=== PATIENT | female | born 1970 | race Caucasian/White ===

== ENCOUNTER 2018-10-22 13:30 | Observation (INO) | payer BC ==
[~2018-10-22] VITALS: Ht 157.5 cm; Wt 90.7 kg
[~2018-10-22 13:30] MED LIST: NEXIUM20 MG PO
[2018-10-22] MEDS ORDERED: SODIUM CHLORIDE 0.9% 1000ML 1,000 ML IV STA ×2 (13:32→14:55)
--- OUTSIDE RECORDS SUMMARY | 2018-10-22 13:32 | XMS REPORT ---
Author Author [facility] Address Unknown Phone Unavailable Care Team Providers Care Auditor Internal Name Role Phone MIGUEL ÁNGEL GAMBOA Unavailable Unavailable Problems This patient has no known problems. Allergies, Adverse Reactions, Alerts This patient has no known allergies or adverse reactions. Medications This patient has no known medications. Results Test Description Test Time Test Comments Text Results Atomic Results Result Comments MRI SPINE LUMBAR WO [place] [address] Patient Name: JENELLE DELGADO MR #: [id number] : 1970 Age/Sex: 46/F Req #: [id number] [facility] Physician: MIGUEL ÁNGEL GAMBOA MD Ordered by: MIGUEL ÁNGEL GAMBOA MD Report #: [id number] Location: [facility] Room/Bed: [place] [address] Procedure: [id number] MRI/MRI SPINE LUMBAR WO Exam Date: 09/13/17 Exam Time: 1209 REPORT STATUS: Signed History: Low back pain. Contusion to back he bends over. Comparison studies: None Technique: Sagittal, coronal and axial T2 , sagittal T1 and IR, axial spin density oblique. Intravenous contrast: None Findings: Number of lumbar vertebral bodies:5 Alignment: Grade 1 anterolisthesis of L5 over S1. Bilateral L5 pars defect.No scoliosis. Soft tissues: No T2 hyperintense inflammatory changes. Paraspinal muscles: No signal abnormalities. No atrophy. Lower thoracic cord:Normal in signal and morphology. The tip of the conus is at L1. Cauda equina: No masses. No arachnoiditis. Vertebrae: Normal in height and signal intensity. No compression fractures, infection or neoplasm. Degenerative changes: L1-L2: No abnormalities. L2-L3: No abnormalities. L3-L4: Mild disc degeneration with loss of T2 signal. Mild diffuse disc bulge without significant canal stenosis or foraminal narrowing. L4-L5: Patent canal and foramina. L5-S1: Disc degeneration with decreased intervertebral space. Uncoverage of the superior disc and moderate bilateral facet hypertrophy without significant canal stenosis and moderate bilateral foraminal narrowing. Fluid the bilateral facet joint with mild left periarticular inflammatory changes. Additional findings: T2 hyperintensity at the liver on segment 5, may represent a cyst or hemangioma IMPRESSION: No acute spinal abnormality. Moderate bilateral foraminal narrowing at L5-S1 secondary to grade 1 anterolisthesis and moderate bilateral facet hypertrophy. Moderate facet hypertrophy at the lumbosacral junction with left periarticular inflammatory changes. Bilateral L5 pars interarticulares defect. Signed by: DR Sammy Crespo M.D. on 09/13/2017 4:11 PM Dictated By: SAMMY BATRES MD 10 Transcribed By: SAMRA on 09/13/171610 COPY TO: MIGUEL ÁNGEL GAMBOA MD CT ABDOMEN/PELVIS [place] [address] Patient Name: JENELLE DELGADO MR #: [id number] : 1970 Age/Sex: 46/F Req #: [id number] Physician: Ordered by: VICKIE RAMOS MD Report #: [id number] Location: Room/Bed: Procedure: [id number] CT/CT ABDOMEN/PELVIS WO Exam Date: 09/12/17 Exam Time: 1615 REPORT STATUS: Signed EXAM: CT Abdomen and Pelvis WITHOUT contrast INDICATION: Abdominal pain COMPARISON: CT abdomen and pelvis 12/16/2010 TECHNIQUE: Abdomen and pelvis were scanned utilizing a multidetector helical scanner from the lung base to the pubic symphysis. Coronal and sagittal reformations were obtained. The lack of intravenous contrast limits the evaluation of the solid organs, vasculature, and possible lymphadenopathy. Protocol: General survey without contrast IV CONTRAST: No intravenous contrast was administered as per physician request. ORAL CONTRAST: None. COMPLICATIONS: None. RADIATION DOSE: Total Exam DLP: 575.4 mGy*cm. CTDIvol has been reviewed. It is below the limits set by the Radiation Protocol Committee (RPC). FINDINGS: LINES: None. Lower thorax: No parenchymal abnormality. No pneumothorax. No pleural effusion. Liver: No focal mass. No hepatomegaly. Normal parenchyma. Gallbladder: Cholecystectomy. Biliary tree: No intrahepatic duct dilation. No extrahepatic duct dilation. Spleen: No splenomegaly. No focal mass. Pancreas: No focal mass. Normal pancreatic duct. No peripancreatic inflammatory changes. Kidneys: No obstructing calculi. No hydronephrosis. No cysts. No perinephric soft tissue inflammatory changes. Adrenal glands: No adrenal nodules.. Bladder: Normal urinary bladder. Pelvic organs: Simple cyst in the right ovary. Normal uterus. Normal left ovary. GI: No bowel wall thickening. No air-fluid levels. The stomach and small bowel are normal. The colon is normal. Normal appendix. A moderate amount of retained feces limits intraluminal evaluation of the colon. Peritoneum/retroperitoneum: No pneumoperitoneum. No ascites. No drainable fluid collection. Lymph nodes: No lymphadenopathy. . Vessels: No focal abnormality. . Limited evaluation. Bones: No focal abnormality. Minimal degenerative changes of the lumbar spine. Soft tissues: No focal abnormality. IMPRESSION: No acute abnormality of the abdomen and pelvis. Signed by: Dr. Miguel Ángel Zaragoza M.D. on 09/12/2017 5:14 PM Dictated By: MIGUEL ÁNGEL ZARAGOZA MD 13 Transcribed By: SAMRA on 09/12/171713 COPY TO: VICKIE RAMOS MD
--- NOTE | 2018-10-22 14:08 | Diagnostic Imaging Report ---
EXAMINATION: CHEST SINGLE (PORTABLE) INDICATION: Vomiting and diarrhea ^ERMD ORDER ^[id number] ^1340 ^Y COMPARISON: None FINDINGS: AP view Limited by body habitus. TUBES and LINES: None. LUNGS: Lungs are well inflated. There is no evidence of pneumonia or pulmonary edema. PLEURA: No pleural effusion or pneumothorax. HEART AND MEDIASTINUM: The cardiomediastinal silhouette is unremarkable. BONES AND SOFT TISSUES: No acute osseous lesion. Partially seen cervical fusion hardware. Soft tissues are unremarkable. UPPER ABDOMEN: No free air under the diaphragm. IMPRESSION: No acute thoracic abnormality. Signed by: Dr. Zach Delcid MD on 10/22/2018 2:05 PM
[2018-10-22 14:12] LABS: BASOPHILS % 0.2 % (0.0-1.0); EOSINOPHILS % 0.2 % (0.0-6.0); HEMATOCRIT 38.7 % (34.2-44.1); HEMOGLOBIN 12.5 g/dL (12.0-16.0); LYMPHOCYTES # (AUTO) 0.5 (1.0-3.2); LYMPHOCYTES % 2.7 % (18.0-39.1); MEAN CORPUSCULAR HEMOGLOBIN 28.3 pg (28-32); MEAN CORPUSCULAR HGB CONC 32.3 g/dL (31-35); MEAN CORPUSCULAR VOLUME 87.6 fL (81-99); MONOCYTES # (AUTO) 0.9 (0.2-0.8); MONOCYTES % 4.6 % (4.4-11.3); NEUTROPHILS # (AUTO) 17.9 (2.1-6.9); NEUTROPHILS % 91.8 % (38.7-80.0); PLATELET COUNT 288 x10e3/uL (140-360); RED BLOOD COUNT 4.42 x10e6/uL (3.6-5.1); RED CELL DISTRIBUTION WIDTH 13.2 % (11.7-14.4)
[2018-10-22 14:22] LABS: INR 0.87; PROTHROMBIN TIME 12.7 seconds (11.9-14.5)
[2018-10-22 14:23] LABS: PARTIAL THROMBOPLASTIN TIME 21.6 seconds (23.8-35.5)
[2018-10-22 14:30] LABS: ALANINE AMINOTRANSFERASE 19 IU/L (0-55); ALBUMIN 3.4 g/dL (3.5-5.0); ALBUMIN/GLOBULIN RATIO 0.7 (0.8-2.0); ALKALINE PHOSPHATASE 96 IU/L (40-150); BLOOD UREA NITROGEN 16 mg/dL (7-26); BUN/CREATININE RATIO 19 (6-25); CALCIUM 8.8 mg/dL (8.4-10.2); CHLORIDE 103 mmol/L (98-107); CREATINE KINASE 86 IU/L (29-168); CREATININE, SERUM 0.84 mg/dL (0.57-1.11); EST GLOMERULAR FILTRATION RATE > 60 ML/MIN (60-); GLUCOSE 115 mg/dL (74-118); LIPASE 29 U/L (8-78); POTASSIUM 4.4 mmol/L (3.5-5.1); SODIUM 137 mmol/L (136-145)
[2018-10-22] MEDS ORDERED: PANTOPRAZOLE 40 MG 10ML VIAL IV ONE (14:30)
[2018-10-22] MEDS ORDERED: ONDANSETRON HCL INJ 2 MG/ML VIAL IV ONE ×2 (14:30→15:30)
[2018-10-22 14:48] LABS: ANION GAP 17.4 mmol/L (8-16); CARBON DIOXIDE 21 mmol/L (22-29)
[2018-10-22 15:02] LABS: BILIRUBIN,URINE NEGATIVE (NEGATIVE); CLARITY,URINE CLEAR (CLEAR); COLOR,URINE YELLOW (YELLOW); KETONES,URINE TRACE (NEGATIVE); LEUKOCYTE ESTERASE ,URINE NEGATIVE (NEGATIVE); NITRITE,URINE NEGATIVE (NEGATIVE); PROTEIN,URINE DIPSTICK NEGATIVE (NEGATIVE); URINE UROBILINOGEN 0.2 mg/dL (0.2 - 1)
[2018-10-22] MEDS ORDERED: SODIUM CHLORIDE 0.9% 1000ML 1,000 ML ONE ×2 (15:02→16:51)
[2018-10-22 15:08] LABS: BACTERIA,URINE FEW /HPF; EPITHELIAL CELLS,URINE FEW /LPF; RBC,URINE 0-5 /HPF (0-5); WBC,URINE (MAN) 0-5 /HPF (0-5)
[2018-10-22] MEDS ORDERED: PROMETHAZINE 12.5MG/ NACL 0.9% 12.5 MG/50 ML BAG IV ONE (15:30)
[2018-10-22] MEDS ORDERED: MORPHINE SULFATE INJ 4 MG/ML INJ IV ONE (15:30)
--- NOTE | 2018-10-22 15:36 | NUR ---
Patient complaining of chest pain at this time. Repeat EKG performed and given to PHOTOVOLTAIC PANEL INSTALLER.
--- NOTE | 2018-10-22 16:36 | NUR ---
Patient states she feel much better at this time. Will continue to monitor patient.
[2018-10-22] MEDS ORDERED: SODIUM CHLORIDE 0.9% 1000ML 1,000 ML IV ONE (17:15)
--- NOTE | 2018-10-22 17:41 | Diagnostic Imaging Report ---
EXAM: CT Abdomen and Pelvis WITHOUT contrast INDICATION: ^ELLIE ABD PAIN, N/V/D ^[id number] ^1650 ^Y COMPARISON: CT dated 05/13/2007 TECHNIQUE: Abdomen and pelvis were scanned utilizing a multidetector helical scanner from the lung base to the pubic symphysis without administration of IV contrast. Absence of intravenous contrast decreases sensitivity for detection of focal lesions and vascular pathology. Coronal and sagittal reformations were obtained. Routine protocol was performed. IV CONTRAST: None ORAL CONTRAST: Small amount of contrast from stomach patient could not tolerate more drinking. COMPLICATIONS: None RADIATION DOSE: Total DLP: 721.63 mGy*cm Estimated effective dose: (DLP x 0.015 x size factor) mSv CTDIvol has been reviewed. It is below the limits set by the Radiation Protocol Committee (RPC). FINDINGS: LINES and TUBES: None. LOWER THORAX: Unremarkable HEPATOBILIARY: Unenhanced liver is unremarkable. No biliary ductal dilation. GALLBLADDER: Surgically absent. SPLEEN: No splenomegaly. PANCREAS: No focal masses or ductal dilatation. ADRENALS: No adrenal nodules KIDNEYS/URETERS: No hydronephrosis. Evaluation of renal parenchyma is limited without intravenous contrast. No stones. GI TRACT: No abnormal distention, wall thickening, or evidence of bowel obstruction. Appendix is not clearly identified. There is however no fat stranding or adenopathy in the right lower quadrant to suggest appendicitis. PELVIC ORGANS/BLADDER: Unremarkable. LYMPH NODES: No lymphadenopathy. VESSELS: Limited evaluation without intravenous contrast. No abdominal aortic aneurysm. PERITONEUM / RETROPERITONEUM: No free air or fluid. BONES: Bilateral L5 pars defects with L5-S1 grade 1 spondylolisthesis. SOFT TISSUES: Unremarkable. IMPRESSION: 1. No definite evidence of acute inflammatory process in the abdomen/pelvis to explain patient's symptoms, considering limitations of unenhanced study. 2. Again seen bilateral L5 pars defects with grade 1 L5-S1 spondylolisthesis. Signed by: Dr. Zach Delcid MD on 10/22/2018 5:38 PM
[2018-10-22] MEDS ORDERED: ONDANSETRON HCL INJ 2 MG/ML VIAL IV PRN (18:00)
[2018-10-22] MEDS ORDERED: MORPHINE SULFATE INJ 4 MG/ML INJ IV PRN (18:00)
[2018-10-22] MEDS ORDERED: CIPROFLOXACIN 400 MG/D5W 200ML 200 ML IV SCH (18:00)
[2018-10-22] MEDS: METRONIDAZOLE 500MG/NS 100ML 100 ML IV SCH (18:08)
[2018-10-22] MEDS ORDERED: ACETAMINOPHEN 1000 MG/100 ML 100 ML IV ONE (18:11)
[2018-10-22 19:00] VITALS: BP 114/52
[2018-10-22] MEDS ORDERED: ACETAMINOPHEN 1000 MG/100 ML IV ONE (19:00)
--- NOTE | 2018-10-22 19:19 | NUR ---
patient is a new admit that arrived via stretcher. patient is awake and talking. patient is resting in the bed. bed is in lowest position and call vega is within reach. will continue to monitor patient.
[2018-10-22 20:00] VITALS: BP 114/52
[2018-10-22] MEDS: SODIUM CHLORIDE 0.9% 1000ML 1,000 ML IV SCH (20:20)
[2018-10-22] MEDS: CIPROFLOXACIN 400 MG/D5W 200ML 200 ML IV SCH (20:29)
[2018-10-22] MEDS ORDERED: ACETAMINOPHEN 325 MG TAB PO PRN (20:45)
--- NOTE | 2018-10-22 21:47 | History and Physical ---
PRIMARY CARE PHYSICIAN: Dr. Hermosillo CHIEF COMPLAINT: Abdominal pain, nausea, vomiting, diarrhea. HISTORY OF PRESENT ILLNESS: This is a 47-year-old woman who had a some [employer], subsequently developed nausea, vomiting, abdominal pain, and diarrhea that started today. When she came to the hospital, she had subjective fever. Denies any other symptoms. Patient received 3 liters normal saline bolus in the emergency room. PAST MEDICAL HISTORY: TIA. PAST SURGICAL HISTORY: Cervical disc related surgery, hysterectomy, tubal ligation, appendectomy. ALLERGIES: PER ELECTRONIC MEDICAL RECORD. FAMILY AND SOCIAL HISTORY: Patient is . No alcohol, illicits, or cigarettes. MEDICATIONS: Per electronic medical record. REVIEW OF SYSTEMS: Denies any chest pain. Denies any leg pain, back pain, dizziness, vision changes. Denies any other symptoms. PHYSICAL EXAMINATION: VITAL SIGNS: Have been reviewed. GENERAL: A tired-appearing woman resting in bed. HEENT: Anicteric. CARDIOVASCULAR: Normal S1 and S2. LUNGS: Moderate breath sounds. ABDOMEN: Soft, nondistended. She is tender in the epigastrium. EXTREMITIES: No edema or calf tenderness. NEUROLOGIC: Alert and oriented x3, moving all extremities. SKIN: Dry. PSYCHIATRIC: Normal affect. LABS: Reviewed. MEDICATIONS: Reviewed. ASSESSMENT: This is a 47-year-old woman with: 1. Acute gastroenteritis. 2. Dehydration. 3. Sepsis. 4. Obesity, body mass index 36.6. PLAN: 1. IV fluids. 2. IV antibiotics, ciprofloxacin and Flagyl. 3. Screening for diabetes. 4. Use Pepcid prophylaxis and SCDs for DVT prophylaxis. 5. Obtain labs in the morning to reassess mild leukocytosis. Job#: [id number] AMELIA
[2018-10-22] MEDS: ACETAMINOPHEN 1000 MG/100 ML IV PRN (23:29)
[2018-10-23] VITALS (7 sets, daily range): BP systolic 96–113; BP diastolic 53–56
[2018-10-23] MEDS: METRONIDAZOLE 500MG/NS 100ML 100 ML IV SCH ×4 (00:34→17:20)
[2018-10-23] MEDS ORDERED: PANTOPRAZOLE SO40 MG PO (05:20)
[2018-10-23 05:47] LABS: BASOPHILS % 0.1 % (0.0-1.0); EOSINOPHILS % 0.1 % (0.0-6.0); HEMATOCRIT 31.5 % (34.2-44.1); LYMPHOCYTES # (AUTO) 1.1 (1.0-3.2); LYMPHOCYTES % 7.7 % (18.0-39.1); MEAN CORPUSCULAR HEMOGLOBIN 27.9 pg (28-32); MEAN CORPUSCULAR HGB CONC 31.7 g/dL (31-35); MONOCYTES # (AUTO) 0.6 (0.2-0.8); MONOCYTES % 3.8 % (4.4-11.3); NEUTROPHILS # (AUTO) 12.9 (2.1-6.9); NEUTROPHILS % 87.8 % (38.7-80.0); PLATELET COUNT 235 x10e3/uL (140-360); RED BLOOD COUNT 3.58 x10e6/uL (3.6-5.1); RED CELL DISTRIBUTION WIDTH 13.4 % (11.7-14.4)
[2018-10-23 06:12] LABS: ANION GAP 12.9 mmol/L (8-16); BLOOD UREA NITROGEN 9 mg/dL (7-26); BUN/CREATININE RATIO 11 (6-25); CALCIUM 7.6 mg/dL (8.4-10.2); CARBON DIOXIDE 21 mmol/L (22-29); CHLORIDE 106 mmol/L (98-107); CREATININE, SERUM 0.83 mg/dL (0.57-1.11); EST GLOMERULAR FILTRATION RATE > 60 ML/MIN (60-); GLUCOSE 102 mg/dL (74-118); SODIUM 137 mmol/L (136-145)
[2018-10-23 06:15] LABS: POTASSIUM 2.9 mmol/L (3.5-5.1)
--- NOTE | 2018-10-23 06:21 | NUR ---
IM- Progress Note O/N; diarrhea REVIEW OF SYSTEMS: Denies any chest pain. Denies any leg pain, back pain, dizziness, vision changes. Denies any other symptoms. PHYSICAL EXAMINATION: VITAL SIGNS: Have been reviewed. GENERAL: A tired-appearing woman resting in bed. HEENT: Anicteric. CARDIOVASCULAR: Normal S1 and S2. LUNGS: Moderate breath sounds. ABDOMEN: Soft, nondistended. She is tender in the epigastrium. EXTREMITIES: No edema or calf tenderness. NEUROLOGIC: Alert and oriented x3, moving all extremities. SKIN: Dry. PSYCHIATRIC: Normal affect. LABS: Reviewed. MEDICATIONS: Reviewed. ASSESSMENT: This is a 47-year-old woman with: 1. Acute gastroenteritis. 2. Dehydration. 3. Sepsis. 4. Obesity, body mass index 36.6. PLAN: 1. IV fluids. 2. IV antibiotics, ciprofloxacin and Flagyl. 3. Screening for diabetes. 4. Use Pepcid prophylaxis and SCDs for DVT prophylaxis. 5. Obtain labs in the morning to reassess mild leukocytosis. 10/23 Diarrhea overnight; hypoK- replace and recheck; cont abx and fluids; d/w family at bedside Jamison Buck MD, PhD
--- NOTE | 2018-10-23 06:23 | NUR ---
lab called to report a potassium level of 2.3. MD notified. Received new orders. Will continue to monitor patient's potassium level.
[2018-10-23] MEDS ORDERED: POTASSIUM CHLORIDE 10MEQ EA PO ONE ×3 (06:30→09:30)
[2018-10-23] MEDS ORDERED: POTASSIUM CHLORIDE 20MEQ/100ML 200 ML IV ONE (06:30)
[2018-10-23] MEDS: CIPROFLOXACIN 400 MG/D5W 200ML 200 ML IV SCH ×2 (07:00→20:22)
--- NOTE | 2018-10-23 07:20 | NUR ---
pt alert resp even and unlabored, no distress noted at this time. pt able to make needs known, call light in reach
--- NOTE | 2018-10-23 07:25 | NUR ---
patient complaining of IV potassium burning. IV potassium has been stopped. MD notified. received new orders. will continue to monitor patient's potassium level.
[2018-10-23] MEDS: FAMOTIDINE 20 MG/2 ML VIAL IV SCH ×2 (09:00→17:20)
[2018-10-23] MEDS: SODIUM CHLORIDE 0.9% 1000ML 1,000 ML IV SCH ×2 (09:47→17:20)
[2018-10-23] MEDS: ACETAMINOPHEN 1000 MG/100 ML IV PRN (13:06)
[2018-10-23] MEDS: HYDROCORTISONE 2.5% PR CRM 1 OZ TUBE PR SCH ×2 (17:20→20:23)
--- NOTE | 2018-10-23 19:08 | NUR ---
report given to oncoming nurse for continued care.
[2018-10-23] MEDS ORDERED: PROMETHAZINE 12.5MG/ NACL 0.9% 12.5 MG/50 ML BAG IV PRN (21:45)
--- NOTE | 2018-10-23 21:45 | NUR ---
patient is complaining of nausea, and is requesting a particular anti-nausea medication. md notified. received new orders. will continue to monitor patient.
[2018-10-24] VITALS: BP 120/60
[2018-10-24] MEDS: METRONIDAZOLE 500MG/NS 100ML 100 ML IV SCH ×2 (00:30→05:27)
[2018-10-24] MEDS: SODIUM CHLORIDE 0.9% 1000ML 1,000 ML IV SCH ×2 (01:47→09:36)
[2018-10-24 04:00] VITALS: BP 114/56
[2018-10-24] MEDS: CIPROFLOXACIN 400 MG/D5W 200ML 200 ML IV SCH (07:00)
--- NOTE | 2018-10-24 07:15 | NUR ---
pt alert and lying supine in bed, family members at bedside, pt had no distress noted at this time. no abd. pain at this time, pt call light in reach will cont to monitor.
[2018-10-24 08:00] VITALS: BP 119/59
[2018-10-24] MEDS: FAMOTIDINE 20 MG/2 ML VIAL IV SCH (09:27)
[2018-10-24] MEDS: HYDROCORTISONE 2.5% PR CRM 1 OZ TUBE PR SCH (09:27)
[2018-10-24 12:07] VITALS: BP 121/60
--- NOTE | 2018-10-24 15:40 | NUR ---
PT SIGNED AMA PAPERS AND WAS INFORMED OF THE RISKS OF LEAVING AGAINST MEDICAL ADVICE.
== END 2018-10-24 15:51 | disposition home or self-care (01) ==
LOC: ER 13:30 → ERHOLD 17:47 → IMCU 18:43
PROVIDERS: ADMIT Internal Medicine; ATTEND Internal Medicine
DX: K52.9 Noninfective gastroenteritis and colitis, unspecified (principal); R10.13 Epigastric pain; E86.0 Dehydration; E66.9 Obesity, unspecified; Z68.36 Body mass index [BMI] 36.0-36.9, adult; Z88.0 Allergy status to penicillin; Z91.041 Radiographic dye allergy status; Z91.040 Latex allergy status; Z28.21 Immunization not carried out because of patient refusal; E87.6 Hypokalemia
CPT/HCPCS: 36415 ×2; 71045; 74176; 80048; 80053; 81001; 81025; 82550; 82553; 83605; 83690; 83735; 83880; 84132; 84484; 85025 ×2; 85610; 85730; 87040; 87086; 93005; 99285; G0378 ×3; J0131 ×2; J0744 ×2; J2270; J2405; J2550 ×2; J3480; J7030 ×3

== ENCOUNTER → 2018-11-19 | Day surgery (SDC) | payer BC ==
[~2018-11-19] MED LIST changes: +CENTRUM COMPLE1 EACH; +FENTANYL CITRATE/PF 100MCG/2 ML INJ ONE; +KETAMINE HCL INJ 50 MG/ML 10 ML VIAL ONE; +LIDOCAINE HCL 2% LOCAL INJ 5 ML SDV VIAL INJ ONE; +MIDAZOLAM HCL 2 MG/2 ML VIAL ONE; +PANTOPRAZOLE SO40 MG PO; +PROPOFOL IV EMULSION 10 MG/ML 50 ML VIAL ONE
[2018-11-19 14:34] LABS: WBC,FECAL (FECAL LACTOFERRIN) NEGATIVE (NEGATIVE)
[2018-11-19 14:45] VITALS: BP 127/80
--- NOTE | 2018-11-19 17:42 | Operative Report ---
DATE OF PROCEDURE: November 19, 2018 REFERRING PHYSICIAN: Dr. Pavel Hermosillo. PROCEDURES PERFORMED 1. Esophagogastroduodenoscopy with biopsies. 2. Colonoscopy with polypectomy and biopsies. INDICATIONS FOR ESOPHAGOGASTRODUODENOSCOPY: Upper abdominal pain. INDICATIONS FOR COLONOSCOPY: Chronic diarrhea, history of bright red blood per rectum, personal history of colon polyps. MEDICATION: Patient was done under MAC. Please see anesthesiologist's note. PROCEDURE: With the patient in left lateral decubitus position, a flexible fiberoptic Olympus gastroscope was introduced into the esophagus under direct visualization without any difficulty. There was some patchy erythema noted in distal esophagus. The scope was then advanced with ease into the stomach traversing a small sliding hiatal hernia. Mucosa overlying the antrum and the body revealed some patchy erythema and low-grade edema and biopsies were obtained and sent to stain for H. pylori. There was approximately 5-mm submucosal nodule mid body greater curvature and that was biopsied. Pylorus appeared to be of normal contour and shape and was intubated with ease and the scope was advanced all the way to the 2nd portion of the duodenum. Biopsies were obtained from the proximal 2nd portion and the duodenal bulb to rule out sprue. The scope was then withdrawn back into the stomach and retroflexed, and mucosa overlying the fundus and cardia appeared to be within normal limits. The scope was then straightened out. The stomach was decompressed. The scope was subsequently withdrawn. Patient tolerated the procedure well. IMPRESSION 1. Distal esophagitis, mild. 2. Small sliding hiatal hernia. 3. Gastritis, biopsied. Biopsies sent to stain for Helicobacter pylori. 4. Approximately 5 mm submucosal nodule, mid body, greater curvature, biopsied. 5. Rule out sprue. PLAN: Follow up histology. Initiate Protonix 40 mg 1 p.o. q.a.m. a.c. Patient was then turned around and after adequate lubrication of the anal canal, a flexible fiberoptic Olympus colonoscope was inserted into the rectum with ease and advanced all the way to the cecum. Mucosa overlying the cecum appeared to be within normal limits. The ileocecal valve was intubated and the scope was advanced into the terminal ileum. Biopsies were obtained. The scope was then withdrawn back into the colon and 1 polyp was hot biopsied from the cecum. The scope was then withdrawn slowly and mucosa overlying the ascending and transverse appeared to be within normal limits. The left colon revealed some patchy mild inflammatory changes and random biopsies were obtained. Some diverticular disease was noted to involve the distal descending and the sigmoid colon. The scope was then retroflexed into the distal rectum and small internal hemorrhoids were noted, none of which was actively bleeding. The scope was then straightened out and was subsequently withdrawn after securing an adequate stool specimen that was sent for the appropriate stool studies. Patient tolerated the procedure well. IMPRESSION 1. Cecal polyp, hot biopsied. 2. Mild patchy left-sided colitis. 3. Diverticulosis. 4. Internal hemorrhoids, none actively bleeding. PLAN: Follow up histology. Follow up stool studies. Initiate Bentyl 20 mg 1 p.o. t.i.d. and VSL #3 one p.o. daily as well as Colestid 1 gram p.o. daily. Patient might benefit from a followup colonoscopy in 3 to 5 years. Job#: [id number] ASHIAU cc:PAVEL HERMOSILLO MD
[2018-11-20 15:12] LABS: C DIFFICILE TOXIN A&B AMP PROB **POSITIVE** (NEGATIVE)
== END | disposition home or self-care (01) ==
LOC: ENDO 11:35
PROVIDERS: ATTEND Internal Medicine Gastroenterology
DX: K29.70 Gastritis, unspecified, without bleeding (principal); D12.0 Benign neoplasm of cecum; K51.50 Left sided colitis without complications; K20.9 Esophagitis, unspecified; K21.9 Gastro-esophageal reflux disease without esophagitis; K31.89 Other diseases of stomach and duodenum; K44.9 Diaphragmatic hernia without obstruction or gangrene; K57.30 Diverticulosis of large intestine without perforation or abscess without bleeding; K64.8 Other hemorrhoids; Z71.3 Dietary counseling and surveillance; R03.0 Elevated blood-pressure reading, without diagnosis of hypertension; Z88.0 Allergy status to penicillin; Z91.041 Radiographic dye allergy status; Z91.040 Latex allergy status; Z68.32 Body mass index [BMI] 32.0-32.9, adult; Z80.0 Family history of malignant neoplasm of digestive organs
CPT/HCPCS: 43239; 45380; 45384; 81025; 83630; 83993; 87045; 87177; 87328; 87493; J2001; J2250

== ENCOUNTER 2018-12-27 10:37 | Emergency (ER) | payer BC ==
[~2018-12-27] VITALS: Ht 157.5 cm; Wt 90.7 kg
[~2018-12-27 10:37] MED LIST changes: -FENTANYL CITRATE/PF 100MCG/2 ML INJ ONE; -KETAMINE HCL INJ 50 MG/ML 10 ML VIAL ONE; -LIDOCAINE HCL 2% LOCAL INJ 5 ML SDV VIAL INJ ONE; -MIDAZOLAM HCL 2 MG/2 ML VIAL ONE; -PROPOFOL IV EMULSION 10 MG/ML 50 ML VIAL ONE
[2018-12-27] MEDS ORDERED: ONDANSETRON HCL INJ 2MG/ML 2ML 2 MG/ML VIAL IV STA (11:06)
[2018-12-27] MEDS ORDERED: MORPHINE SULFATE 2 MG/ML SYR 1ML IV STA (11:08)
[2018-12-27] MEDS ORDERED: MORPHINE SULFATE INJ 4 MG/ML INJ 1ML IV NR (11:15)
[2018-12-27] MEDS ORDERED: SODIUM CHLORIDE 0.9% 1000ML 1,000 ML IV SCH (11:15)
--- NOTE | 2018-12-27 11:23 | NUR ---
PT CONCERN MORPHINE DROPPED HER BP BEFORE, EXPLAINED DRUG AND SIDE EFFECTS, PT STATES UNDERSTANDING AND ON FULL MONITORS AND WILL MONITOR AND STATES OK TO TAKE MEDICATIONS
--- NOTE | 2018-12-27 11:57 | Diagnostic Imaging Report ---
EXAMINATION: CT of the abdomen and pelvis without contrast. TECHNIQUE: Spiral CT images of the abdomen and pelvis were performed from the lung bases to the lesser trochanters. No intravenous contrast was given per patient reported allergy to iodinated contrast Coronal and sagittal reformatted images were obtained. COMPARISON: 10/22/2018 CLINICAL HISTORY:Low abdominal pain DISCUSSION: ABSENCE OF INTRAVENOUS CONTRAST DECREASES SENSITIVITY FOR DETECTION OF FOCAL LESIONS AND VASCULAR PATHOLOGY. ABDOMEN/PELVIS: LOWER THORAX: Unremarkable. HEPATOBILIARY:Subcentimeter hypoattenuating lesion in segment 8/7 is too small to further characterize though likely to represent a small cyst. 2.1 cm hypoattenuating lesion in segment 5 has average internal attenuation 30 Hounsfield units. The gallbladder has been removed. No intrahepatic biliary ductal dilatation. SPLEEN: No splenomegaly. PANCREAS: No focal masses or ductal dilatation. ADRENALS: No adrenal nodules. KIDNEYS/URETERS: No hydronephrosis, stones, or solid mass lesions. PELVIC ORGANS/BLADDER: Urinary bladder is incompletely distended and poorly evaluated. The uterus is anteflexed and appears normal. No adnexal mass. PERITONEUM/RETROPERITONEUM: No free air or fluid. LYMPH NODES: No pelvic sidewall, retroperitoneal, or mesenteric lymphadenopathy. VESSELS: Limited evaluation without intravenous contrast. The abdominal aorta is nonaneurysmal. GI TRACT: The sigmoid colon and rectum are collapsed and poorly evaluated. The remainder of the large bowel shows no gross distention or wall thickening. The appendix is not definitively identified. No right lower quadrant inflammation. BONES AND SOFT TISSUES: No focal soft tissue abnormalities. Bilateral L5 pars interarticularis defects with anterolisthesis over S1, unchanged compared to 10/22/2018. IMPRESSION: Sensitivity and specificity of this examination are limited in the absence of intravenous contrast. No acute intra-abdominal or pelvic CT abnormalities. 2.1 cm hypoattenuating lesion in hepatic segment 5. In the absence of known malignancy, considerations include hemangioma, focal nodular hyperplasia, and hepatic adenoma. Definitive characterization with MRI of the abdomen with and without contrast, liver mass protocol, is suggested in light of patient's allergy to iodinated contrast media. Signed by: Dr. Dmitry Villarreal M.D. on 12/27/2018 11:52 AM
--- NOTE | 2018-12-27 12:28 | NUR ---
AMBULATORY TO RESTROOM.
== END 2018-12-27 11:03 | disposition home or self-care (01) ==
LOC: FSED 10:37
DX: R10.31 Right lower quadrant pain (principal); R10.32 Left lower quadrant pain; R11.0 Nausea; N30.90 Cystitis, unspecified without hematuria; K21.9 Gastro-esophageal reflux disease without esophagitis; F32.9 Major depressive disorder, single episode, unspecified
CPT/HCPCS: 74176; 80048; 80076; 81003; 81025; 82270; 82553; 84484; 85025; 99284; J2405; J7030

== ENCOUNTER 2019-05-05 16:17 | Emergency (ER) | payer SELFPAY ==
[~2019-05-05] VITALS: Ht 157.5 cm; Wt 85.3 kg
--- NOTE | 2019-05-05 18:38 | Diagnostic Imaging Report ---
KNEE 3VW LT - HOPD - 3 views HISTORY: Pain. Fell. COMPARISON: None available. FINDINGS: Bones: No acute displaced fracture. Osseous alignment is within normal limits. Joints: The joint spaces are well-maintained. Soft tissues: The soft tissues appear unremarkable. IMPRESSION: No acute radiographic abnormality. Signed by: Dr. Jon Simmons M.D. on 05/05/2019 6:34 PM
--- NOTE | 2019-05-05 18:39 | Diagnostic Imaging Report ---
T SPINE 2VW - HOPD - 2 views HISTORY: Pain. Fall. COMPARISON: None available. FINDINGS: Bones: No acute displaced fracture. Osseous alignment is within normal limits. Joints: Trace degenerative changes in the thoracic spine with mild anterior disc osteophytes. Soft tissues: The soft tissues appear unremarkable. Right upper quadrant cholecystectomy clips. IMPRESSION: No acute radiographic abnormality. Signed by: Dr. Jon Simmons M.D. on 05/05/2019 6:35 PM
--- NOTE | 2019-05-05 18:57 | Diagnostic Imaging Report ---
History: Fall Comparison studies: None Technique: Axial images were obtained from the skull base to the vertex. Coronal and sagittal reconstructions obtained from the axial data. Dose modulation, iterative reconstruction, and/or weight based adjustment of the mA/kV was utilized to reduce the radiation dose to as low as reasonably achievable. Intravenous contrast: None Findings: Scalp/skull: No abnormalities. No fractures, blastic or lytic lesions. Extra-axial spaces: No masses. No fluid collections. Brain sulci: Appropriate for age. Ventricles: Normal in size and configuration. No hydrocephalus. Parenchyma: No abnormal densities. No masses, hemorrhage, acute or chronic cortical vascular insults. Sellar/suprasellar region: No abnormalities Craniocervical junction: Patent foramen magnum. No Chiari one malformation. Incidental findings: None. IMPRESSION: No abnormalities. Signed by: Dr. Shai Bull M.D. on 05/05/2019 6:53 PM
--- NOTE | 2019-05-05 19:17 | Diagnostic Imaging Report ---
History: Fall Comparison studies: None Technique: Axial images were obtained through the cervical region.. Coronal and sagittal images reconstructed from the axial data. Dose modulation, iterative reconstruction, and/or weight based adjustment of the mA/kV was utilized to reduce the radiation dose to as low as reasonably achievable. Intravenous contrast: None Findings: Fractures: None. Soft tissues: No gross abnormalities. Atlantoaxial articulation: Intact. Alignment: Normal lordosis. No scoliosis. Cervicomedullary junction: No abnormalities. The foramen magnum is patent. Vertebrae: No infection or neoplasm. Incidental 6 mm os odontoideum (series 105, image 24) Postsurgical changes: Patient status post anterior fusion at C5-6. Paired screws are embedded within the C5 and C6 vertebral bodies. The intervening disc space is probably fused but obscured by artifacts. No hardware loosening or failure. Degenerative changes: Mildly degenerated disks at C4-5, moderate at C6-C7, mild from C7 to T2. Moderate spinal canal stenosis at C6-C7 due to a disc osteophyte complex Superimposed foraminal stenosis is mild right at C5-6 and C6-7 due to uncoarthrosis. IMPRESSION: 1. No acute abnormalities. 2. Cannot adequately evaluate for ligament, spinal cord and or vascular abnormalities. 3. Previous anterior cervical fusion at C5-6. Hardware in place. No loosening or failure. 4. Degenerative changes as described. Signed by: Dr. Shai Bull M.D. on 05/05/2019 7:13 PM
--- NOTE | 2019-05-05 19:30 | NUR ---
Report to NUBIA Tobias
== END 2019-05-05 19:35 | disposition home or self-care (01) ==
LOC: FSED 16:17
DX: S00.83XA Contusion of other part of head, initial encounter (principal); M54.2 Cervicalgia; S16.1XXA Strain of muscle, fascia and tendon at neck level, initial encounter; M54.6 Pain in thoracic spine; S23.3XXA Sprain of ligaments of thoracic spine, initial encounter; S80.02XA Contusion of left knee, initial encounter; W01.0XXA Fall on same level from slipping, tripping and stumbling without subsequent striking against object, initial encounter; Y92.512 Supermarket, store or market as the place of occurrence of the external cause; I10 Essential (primary) hypertension; Z86.718 Personal history of other venous thrombosis and embolism
CPT/HCPCS: 70450; 72070; 72125; 99283

== ENCOUNTER 2021-11-23 10:56 | Observation (INO) | payer BC ==
[~2021-11-23] VITALS: Ht 154.9 cm; Wt 93.4 kg
[2021-11-23] MEDS ORDERED: SODIUM CHLORIDE 0.9% 1000ML 1,000 ML IV STA (11:20)
[2021-11-23 12:34] LABS: CLARITY,URINE CLEAR (CLEAR); COLOR,URINE YELLOW (YELLOW)
[2021-11-23 12:35] LABS: KETONES,URINE NEGATIVE (NEGATIVE); LEUKOCYTE ESTERASE ,URINE NEGATIVE (NEGATIVE); NITRITE,URINE NEGATIVE (NEGATIVE); PROTEIN,URINE DIPSTICK NEGATIVE (NEGATIVE); URINE UROBILINOGEN 0.2 mg/dL (0.2 - 1)
[2021-11-23 12:36] LABS: BACTERIA,URINE RARE /HPF; EPITHELIAL CELLS,URINE FEW /LPF; RBC,URINE 0-5 /HPF (0-5); WBC,URINE (MAN) 0-5 /HPF (0-5)
[2021-11-23 13:13] LABS: BASOPHILS % 0.2 % (0.0-1.0); EOSINOPHILS # (AUTO) 0.1 (0.0-0.4); EOSINOPHILS % 1.3 % (0.0-6.0); HEMATOCRIT 36.3 % (34.2-44.1); HEMOGLOBIN 11.4 g/dL (12.0-16.0); LYMPHOCYTES # (AUTO) 2.7 (1.0-3.2); LYMPHOCYTES % 28.9 % (18.0-39.1); MEAN CORPUSCULAR HEMOGLOBIN 27.5 pg (28-32); MEAN CORPUSCULAR HGB CONC 31.4 g/dL (31-35); MEAN CORPUSCULAR VOLUME 87.7 fL (81-99); MONOCYTES # (AUTO) 0.6 (0.2-0.8); MONOCYTES % 6.1 % (4.4-11.3); NEUTROPHILS # (AUTO) 5.9 (2.1-6.9); NEUTROPHILS % 63.1 % (38.7-80.0); PLATELET COUNT 300 x10e3/uL (140-360); RED BLOOD COUNT 4.14 x10e6/uL (3.6-5.1); RED CELL DISTRIBUTION WIDTH 13.1 % (11.7-14.4)
[2021-11-23 13:23] LABS: INR 0.89; PROTHROMBIN TIME 12.7 seconds (11.9-14.5)
[2021-11-23 13:24] LABS: PARTIAL THROMBOPLASTIN TIME 28.5 seconds (23.8-35.5)
[2021-11-23 13:38] LABS: ALANINE AMINOTRANSFERASE 15 IU/L (0-55); ALBUMIN/GLOBULIN RATIO 0.7 (0.8-2.0); ALKALINE PHOSPHATASE 98 IU/L (40-150); BLOOD UREA NITROGEN 9 mg/dL (7-26); BUN/CREATININE RATIO 10 (6-25); CALCIUM 8.7 mg/dL (8.4-10.2); CARBON DIOXIDE 22 mmol/L (22-29); CHLORIDE 108 mmol/L (98-107); CREATINE KINASE 44 IU/L (29-168); CREATININE, SERUM 0.87 mg/dL (0.57-1.11); EST GLOMERULAR FILTRATION RATE 69 ML/MIN (60-); GLUCOSE 89 mg/dL (74-118); MAGNESIUM 1.8 MG/DL (1.3-2.1); SODIUM 140 mmol/L (136-145)
[2021-11-23] MEDS ORDERED: ONDANSETRON HCL INJ 2MG/ML 2ML 2 MG/ML VIAL IV STA (14:33)
[2021-11-23] MEDS ORDERED: ONDANSETRON HCL INJ 2MG/ML 2ML 2 MG/ML VIAL IV PRN (14:45)
[2021-11-23] MEDS ORDERED: ACETAMINOPHEN 325 MG TAB PO PRN (14:45)
[2021-11-23] MEDS ORDERED: SODIUM CHLORIDE 0.9% 1000ML 1,000 ML IV SCH (14:45)
[2021-11-23] MEDS ORDERED: HYDROCORTISONE SOD SUCCINATE 100 MG VIAL IV ONE ×2 (15:15→18:45)
[2021-11-23] MEDS ORDERED: ENOXAPARIN SODIUM INJ 100 MG/ML SYR SC ONE (15:15)
[2021-11-23] MEDS ORDERED: LORAZEPAM 1 MG TAB PO ONE (16:30)
[2021-11-23] MEDS ORDERED: IOPAMIDOL 370 MG/ML 200 ML INFUS..BTL INJ ONE (17:35)
[2021-11-23] MEDS ORDERED: SODIUM CHLORIDE 0.9% 50ML 0 ML ONE (17:35)
[2021-11-23 18:35] LABS: CREATINE KINASE MB 0.6 ng/mL (0-5.0)
[2021-11-23] MEDS ORDERED: SODIUM CHLORIDE 0.9% 50ML 50 ML ONE (19:02)
[2021-11-23] MEDS ORDERED: DIPHENHYDRAMINE HCL INJ 50 MG/ML VIAL IV ONE (19:45)
[2021-11-23 20:10] VITALS: BP 101/61
[2021-11-23 20:28] VITALS: BP 101/61
[2021-11-23 21:00] VITALS: BP 101/61
[2021-11-24 00:10] VITALS: BP 108/71
[2021-11-24 00:53] VITALS: BP 108/71
[2021-11-24 05:12] VITALS: BP 113/68
[2021-11-24] MEDS ORDERED: DOCUSATE SODIUM 100 MG CAP PO PRN (06:15)
[2021-11-24] MEDS ORDERED: PANTOPRAZOLE SOD 40 MG TABEC PO PRN (06:15)
[2021-11-24 06:48] LABS: BASOPHILS % 0.1 % (0.0-1.0); HEMATOCRIT 34.4 % (34.2-44.1); HEMOGLOBIN 10.6 g/dL (12.0-16.0); LYMPHOCYTES # (AUTO) 1.2 (1.0-3.2); LYMPHOCYTES % 13.5 % (18.0-39.1); MEAN CORPUSCULAR HEMOGLOBIN 27.4 pg (28-32); MEAN CORPUSCULAR HGB CONC 30.8 g/dL (31-35); MEAN CORPUSCULAR VOLUME 88.9 fL (81-99); MONOCYTES # (AUTO) 0.1 (0.2-0.8); MONOCYTES % 1.3 % (4.4-11.3); NEUTROPHILS # (AUTO) 7.7 (2.1-6.9); NEUTROPHILS % 84.8 % (38.7-80.0); PLATELET COUNT 257 x10e3/uL (140-360); RED BLOOD COUNT 3.87 x10e6/uL (3.6-5.1); RED CELL DISTRIBUTION WIDTH 13.3 % (11.7-14.4)
[2021-11-24 07:07] LABS: ALBUMIN 2.6 g/dL (3.5-5.0); ALBUMIN/GLOBULIN RATIO 0.7 (0.8-2.0); ANION GAP 12.7 mmol/L (8-16); CALCIUM 8.8 mg/dL (8.4-10.2); CREATININE, SERUM 0.8 mg/dL (0.57-1.11); POTASSIUM 3.7 mmol/L (3.5-5.1)
[2021-11-24 07:44] LABS: CREATINE KINASE MB 0.5 ng/mL (0-5.0)
[2021-11-24 08:00] VITALS: BP 118/64
[2021-11-24] MEDS ORDERED: ASCORBIC ACID500 MG PO (08:50)
[2021-11-24] MEDS ORDERED: Zinc Sulfate PO (08:50)
[2021-11-24] MEDS ORDERED: Cholecalciferol PO (08:50)
[2021-11-24] MEDS ORDERED: LORATADINE10 MG PO (08:50)
[2021-11-24] MEDS ORDERED: CHOLECALCIFEROL 1,000 UNIT TAB PO SCH (09:00)
[2021-11-24] MEDS ORDERED: ASCORBIC ACID 500 MG TAB PO SCH (09:00)
[2021-11-24] MEDS ORDERED: LORATADINE 10 MG TAB PO SCH (09:00)
[2021-11-24] MEDS ORDERED: ZINC SULFATE 50 MG CAP PO SCH (09:00)
[2021-11-24] MEDS ORDERED: ENOXAPARIN SOD INJ 40 MG/0.4 ML SYR SC SCH (17:00)
== END 2021-11-24 11:02 | disposition home or self-care (01) ==
LOC: ER 11:25 → ERHOLD 14:45 → MED/SURG2 18:23
PROVIDERS: ADMIT Internal Medicine; ATTEND Internal Medicine
DX: U07.1 COVID-19 (principal); E66.9 Obesity, unspecified; Z68.38 Body mass index [BMI] 38.0-38.9, adult; K21.9 Gastro-esophageal reflux disease without esophagitis; Z91.041 Radiographic dye allergy status; Z91.040 Latex allergy status; Z88.0 Allergy status to penicillin; Z91.048 Other nonmedicinal substance allergy status
CPT/HCPCS: 36415 ×2; 36569; 71045 ×2; 71260; 72072; 80053 ×2; 81001; 82550 ×2; 82553 ×2; 83735; 83880; 84484 ×2; 84702; 85025 ×2; 85379; 85610; 85730; 87086; 93005; 94799; 99284; C9113; G0378 ×2; J1200; J1650; J1720; J2405; J7030; Q9967; U0002

== ENCOUNTER → 2022-06-08 | Outpatient (CLI) | payer BC ==
[~2022-06-08] MED LIST changes: +ASCORBIC ACID500 MG PO; +Cholecalciferol PO; +LORATADINE10 MG PO; +Zinc Sulfate PO
== END ==
LOC: CT 07:02
PROVIDERS: ATTEND Family Medicine
DX: R10.84 Generalized abdominal pain (principal); R10.2 Pelvic and perineal pain
CPT/HCPCS: 74176